=== PATIENT | female | born 1975 | race African-American/Black ===

== ENCOUNTER 2024-10-23 08:42 | Emergency (ER) | payer BC ==
[~2024-10-23] VITALS: Ht 165.1 cm; Wt 98.0 kg
[2024-10-23 08:50] VITALS: BP 156/110; PULSE 90; RESP 18; TEMP 37.1; O2SAT 98
[2024-10-23 08:52] VITALS: O2SAT 99
[2024-10-23] MEDS: DEXAMETHASONE 4MG/ML 1ML VIAL IM ONE (09:30)
[2024-10-23] MEDS: KETOROLAC 30MG/ML VIAL IM ONE (10:02)
[2024-10-23 10:19] LABS: CLARITY URINE CLOUDY (CLEAR); COLOR URINE DARK YELLOW (YELLOW); GLUCOSE URINE NEGATIVE (NEGATIVE); KETONES URINE 1+ (NEGATIVE); LEUKOCYTE ESTERASE URINE NEGATIVE (NEGATIVE); NITRITE URINE NEGATIVE (NEGATIVE); OCCULT BLOOD URINE NEGATIVE (NEGATIVE); PH URINE 5.5 (4.5-8.0); PROTEIN URINE TRACE (NEGATIVE); SPECIFIC GRAVITY URINE 1.027 (1.005-1.030)
[2024-10-23 10:45] LABS: MUCUS URINE 2+ /lpf (< = 2+); SQUAMOUS EPITHELIAL CELL URINE 2+ /lpf (RARE/1+)
[2024-10-23 10:47] LABS: BACTERIA URINE 2+; WBC URINE 0-2 /hpf (0-2)
== END 2024-10-23 11:07 | disposition home or self-care (01) ==
LOC: ER 08:42
DX: M54.40 Lumbago with sciatica, unspecified side (principal); E11.9 Type 2 diabetes mellitus without complications; I10 Essential (primary) hypertension
CPT/HCPCS: 81003; 81025; 72100; 96372; 99284; J1100; J1885; Z7610